=== PATIENT | female | born 1995 | race African-American/Black ===

== ENCOUNTER 2018-08-30 19:29 | Emergency (ER) | payer MEDICAID, OTHER ==
[2018-08-30 20:18] LABS: #Basophils 0.1 thou/uL (0.0-0.2); #Lymphocytes 1.8 thou/uL (1.20-3.40); #Monocytes 0.5 thou/uL (0.11-0.59); #Neutrophils 9.4 thou/uL (1.40-6.50); %Basophils 0.5 % (0.0-1.0); %Eosinophils 0.1 % (0.0-10.0); %Lymphocytes 15.4 % (21.0-51.0); %Monocytes 4.6 % (0.0-10.0); %Neutrophils 79.4 % (42.0-75.0); Hemoglobin 13.6 g/dL (12.0-16.0); Mean Corpuscular HGB CONC 32.4 g/dL (32.0-36.0); Mean Corpuscular Volume 80.1 fL (78.0-98.0); Mean Platelet Volume 7.1 fL (7.4-10.4); Platelet Count 299 thou/uL (130-400); RBC Distribution Width 12.7 % (11.5-14.5); Red Blood Cell (RBC) Count 5.22 mill/uL (4.20-5.40); White Blood Cell (WBC) Count 11.8 thou/uL (4.8-10.8)
[2018-08-30 20:35] LABS: ALT (SGPT) 19 U/L (8-55); AST (SGOT) 19 U/L (5-34); Albumin 4.5 g/dL (3.5-5.0); Alkaline Phosphatase 72 U/L (40-150); Anion Gap 15 mmol/L (10-20); BUN (Urea Nitrogen) 7 mg/dL (7.0-18.7); Bilirubin, Total 0.6 mg/dL (0.2-1.2); Calc. Creatinine Clearance 0 mL/min (70-130); Calcium 9.6 mg/dL (7.8-10.44); Carbon Dioxide 20 mmol/L (22-29); Chloride 106 mmol/L (98-107); Estimated GFR-MDRD Greater than 90; Glucose 85 mg/dL (70-105); Lipase 5 U/L (8-78); Potassium 3.5 mmol/L (3.5-5.1); Protein, Total 7.5 g/dL (6.0-8.3); Sodium 137 mmol/L (136-145)
[2018-08-30] MEDS ORDERED: Fentanyl 100 MCG/2 ML VIAL ONE (21:06)
[2018-08-30 21:18] LABS: Bilirubin Negative (Negative); Blood, Urine Negative (Negative); Clarity Slightly Cloudy (Clear); Glucose, Urine (Dipstick) Negative (Negative); Leukocyte Negative (Negative); Nitrite Negative (Negative); Protein, Urine (Dipstick) Negative (Neg-Trace); Urobilinogen 0.2 mg/dL (0.2-1.0)
== END 2018-08-30 21:41 | disposition home or self-care (01) ==
LOC: SCSER 19:29
DX: O99.284 Endocrine, nutritional and metabolic diseases complicating childbirth (principal); E86.0 Dehydration; O99.351 Diseases of the nervous system complicating pregnancy, first trimester; G43.909 Migraine, unspecified, not intractable, without status migrainosus; Z3A.01 Less than 8 weeks gestation of pregnancy
CPT/HCPCS: 80053; 81003; 83690; 85025; 96361; 96374; J3010

== ENCOUNTER 2019-01-05 10:07 | Emergency (ER) | payer MEDICAID, OTHER ==
[2019-01-05] MEDS ORDERED: Sucralfate 1 GM/10 ML UDCUP ONE (11:02)
[2019-01-05 11:12] LABS: #Basophils 0.1 thou/uL (0.0-0.2); #Lymphocytes 1.5 thou/uL (1.20-3.40); #Monocytes 0.5 thou/uL (0.11-0.59); #Neutrophils 7.9 thou/uL (1.40-6.50); %Basophils 0.5 % (0.0-1.0); %Eosinophils 0.3 % (0.0-10.0); %Lymphocytes 15.4 % (21.0-51.0); %Monocytes 4.9 % (0.0-10.0); Mean Corpuscular HGB CONC 34.3 g/dL (32.0-36.0); Mean Corpuscular Volume 81.7 fL (78.0-98.0); Mean Platelet Volume 8.2 fL (7.4-10.4); Platelet Count 224 thou/uL (130-400); RBC Distribution Width 11.9 % (11.5-14.5); Red Blood Cell (RBC) Count 4.64 mill/uL (4.20-5.40)
--- NOTE | 2019-01-05 11:14 | RAD ---
XR Chest 1 View Portable History: Chest pain Comparison: Radiograph December 30, 2016 Findings: Lungs are clear. No pneumothorax or effusion. Cardiac silhouette and mediastinal contours a re within normal limits. No acute osseous abnormality. Impression: No acute intrathoracic abnormality.
[2019-01-05 11:40] LABS: ALT (SGPT) 11 U/L (8-55); AST (SGOT) 16 U/L (5-34); Albumin 3.9 g/dL (3.5-5.0); Alkaline Phosphatase 97 U/L (40-150); Anion Gap 12 mmol/L (10-20); BUN (Urea Nitrogen) 8 mg/dL (7.0-18.7); Bilirubin, Total 0.3 mg/dL (0.2-1.2); Calc. Creatinine Clearance 0 mL/min (70-130); Calcium 9.7 mg/dL (7.8-10.44); Carbon Dioxide 23 mmol/L (22-29); Chloride 106 mmol/L (98-107); Estimated GFR-MDRD Greater than 90; Globulin 3.5 g/dL (2.4-3.5); Glucose 73 mg/dL (70-105); Lipase 9 U/L (8-78); Potassium 3.9 mmol/L (3.5-5.1); Protein, Total 7.4 g/dL (6.0-8.3); Sodium 137 mmol/L (136-145)
[2019-01-05] MEDS ORDERED: Ondansetron PF 4 MG/2 ML Vial ONE (11:53)
--- NOTE | 2019-01-05 13:50 | CT ---
CTA THORAX WITH CONTRAST: (Computed Tomographic Angiography, chest(noncoronary) with contrast material, and image postprocessin g) (PE protocol) DATE: 01-05-19 TIME: 12:50 p.m. HISTORY: 23-year-old female presents with chest pain and productive cough. TECHNIQUE: IV injection of iodinated contrast: Isovue Scan acquisition timing attempted to coincide with iodinated contrast bolus reaching maximal density in pulmonary arteries. 3D MIP reconstructions. FINDINGS: There is an approximately 2.5 x 1.5 x 1.5 cm noncalcified right proximal inferior hilar lymph node. N o other enlarged hilar or mediastinal lymph nodes. Trachea and major bronchi are patent and clear. No pulmonary thromboembolism. No thoracic aortic dissection, aneurysm or rupture. No pleural effusion, pneumothorax, or pericardial effusion. Lungs are clear. Surgical clips in the gallbladder fossa. IMPRESSION: 1. No pulmonary thromboembolism or any other acute intrathoracic abnormality. 2. Nonspecific enlarged right proximal infrahilar lymph node. 3. Status post cholecystectomy. jn POS: CET
== END 2019-01-05 14:29 | disposition home or self-care (01) ==
LOC: ERS 10:07
DX: O99.89 Other specified diseases and conditions complicating pregnancy, childbirth and the puerperium (principal); R07.89 Other chest pain; O99.352 Diseases of the nervous system complicating pregnancy, second trimester; G43.909 Migraine, unspecified, not intractable, without status migrainosus; Z3A.26 26 weeks gestation of pregnancy
CPT/HCPCS: 71045; 71275; 80053; 83690; 84484; 85025; 85379; 93005; 96361; 96374; J2405

== ENCOUNTER 2019-02-04 21:10 | Emergency (ER) | payer OTHER ==
[2019-02-04 21:35] LABS: Bilirubin Negative (Negative); Blood, Urine Negative (Negative); Clarity Clear (Clear); Glucose, Urine (Dipstick) Negative (Negative); Leukocyte Small (Negative); Nitrite Negative (Negative); Protein, Urine (Dipstick) Negative (Neg-Trace); Urobilinogen 0.2 mg/dL (Less than 2)
[2019-02-04 21:42] LABS: Bacteria/HPF Rare-Few HPF (None Seen); RBC/HPF None Seen HPF (0-3); Squamous Epithelial 0-3 HPF (0-3); WBC/HPF 0-3 HPF (0-3)
== END 2019-02-04 22:38 | disposition home or self-care (01) ==
LOC: SCSER 21:10
DX: O47.03 False labor before 37 completed weeks of gestation, third trimester (principal); O99.353 Diseases of the nervous system complicating pregnancy, third trimester; G43.909 Migraine, unspecified, not intractable, without status migrainosus; Z3A.30 30 weeks gestation of pregnancy
CPT/HCPCS: 81003; 81015; 99284

== ENCOUNTER 2019-03-23 11:25 | Inpatient (IN) | payer OTHER ==
[~2019-03-23 11:25] MED LIST: Bupivacaine 0.25% HCL 30 ML VIAL ONE; Bupivacaine/Epinephrine 0.25% 30 ML VIAL ONE
[2019-03-23] MEDS ORDERED: hydrALAZINE 20 MG/ML VIAL SLOW IVP PRN ×2 (11:38→17:22)
[2019-03-23] MEDS ORDERED: Misoprostol 200 MCG TAB PR PRN (11:38)
[2019-03-23] MEDS ORDERED: Docusate 100 MG CAP PO PRN (11:38)
[2019-03-23] MEDS ORDERED: Diphenoxylate HCl/Atropine Tablet PO PRN ×2 (11:38)
[2019-03-23] MEDS ORDERED: Ibuprofen 800 MG TAB PO PRN (11:38)
[2019-03-23] MEDS ORDERED: Butorphanol Tartrate 1 MG/ML VIAL SLOW IVP PRN (11:38)
[2019-03-23] MEDS ORDERED: Ondansetron PF 4 MG/2 ML Vial IVP PRN (11:38)
[2019-03-23] MEDS ORDERED: NS / Oxytocin 40 units/1000ml 1,000 ML IV PRN (11:38)
[2019-03-23] MEDS ORDERED: Promethazine HCl 25 MG/ML VIAL IM PRN (11:38)
[2019-03-23] MEDS ORDERED: Lidocaine 1% (PF) 30 ML VIAL SC PRN (11:38)
[2019-03-23] MEDS ORDERED: traMADol HCl 50 MG TAB PO PRN (11:42)
[2019-03-23] MEDS ORDERED: Lactated Ringer's 1,000 ML IV SCH (11:45)
[2019-03-23] MEDS ORDERED: NS w/ Oxytocin 10 units 500 ML IV SCH ×2 (11:45)
[2019-03-23] MEDS ORDERED: Penicillin G Potassium 5 MILL.UNITS in Sodium Chloride 0.9% 100 ML IVPB SCH (11:45)
[2019-03-23 12:45] LABS: Mean Corpuscular HGB CONC 34.5 g/dL (32.0-36.0); Mean Corpuscular Hemoglobin 27.4 pg (27.0-31.0); Mean Corpuscular Volume 79.3 fL (78.0-98.0); Platelet Count 251 thou/uL (130-400); RBC Distribution Width 12.2 % (11.5-14.5); Red Blood Cell (RBC) Count 4.39 mill/uL (4.20-5.40)
[2019-03-23] MEDS ORDERED: Lidocaine 1.5%/Epinephrine 1:200,000 5 ML AMPUL IJ ONE (12:55)
[2019-03-23] MEDS ORDERED: Fentanyl 4 mcg/Bup 0.1% Cadd 100 ML ONE (12:56)
[2019-03-23 13:23] LABS: Syphilis Antibody Nonreactive (Nonreactive); Syphilis Antibody Index 0.03 S/CO (<1.00 Non-Reactive)
[2019-03-23 14:37] LABS: HBSAg Index 0.13 S/CO (0-0.99); Hep B Surf Ag NonReactive S/CO (NonReactive)
[2019-03-23 15:30] VITALS: BMI 26.2
[2019-03-23] MEDS ORDERED: Penicillin G 2.5 MILL.units 2.5 MILL.UNITS in Premix Bag 1 BAG IVPB SCH (16:00)
[2019-03-23] MEDS ORDERED: Lanolin Ointment 7 GM TUBE TOP PRN (17:22)
[2019-03-23] MEDS ORDERED: Zolpidem Tartrate 5 MG TAB PO PRN (17:22)
[2019-03-23] MEDS ORDERED: Bisacodyl 10 MG SUPP PR PRN (17:22)
[2019-03-23] MEDS ORDERED: Milk Of Magnesia 30 ML UDCUP PO PRN (17:22)
[2019-03-23] MEDS ORDERED: diphenhydrAMINE 25 MG CAP PO PRN (17:22)
[2019-03-23] MEDS ORDERED: Preparation H Ointment 28 GM TUBE PR PRN (17:22)
[2019-03-23] MEDS ORDERED: Misoprostol 200 MCG TAB VAG PRN (17:22)
[2019-03-23] MEDS ORDERED: Benzocaine-Menthol 82.5 ML CAN TOP PRN (17:22)
[2019-03-23] MEDS ORDERED: NS / Oxytocin 40 units/1000ml 1,000 ML IV SCH (17:30)
[2019-03-23] MEDS: traMADol HCl 50 MG TAB PO PRN (19:54)
[2019-03-23] MEDS: Ondansetron PF 4 MG/2 ML Vial IVP PRN (20:37)
[2019-03-23] MEDS: Docusate Calcium (SURFAK) 240 MG CAP PO SCH (22:08)
[2019-03-23] MEDS: Ibuprofen 800 MG TAB PO SCH (22:08)
[2019-03-24] MEDS: Ondansetron PF 4 MG/2 ML Vial IVP PRN (00:27)
[2019-03-24] MEDS: traMADol HCl 50 MG TAB PO PRN ×3 (04:14→13:02)
[2019-03-24] MEDS: Ibuprofen 800 MG TAB PO SCH ×3 (05:39→21:15)
[2019-03-24] MEDS: Ferrous Sulfate 325 MG TAB PO SCH ×2 (07:41→17:25)
[2019-03-24] MEDS: Prenatal Vitamin 1 TAB PO SCH (08:38)
[2019-03-24] MEDS: Docusate Calcium (SURFAK) 240 MG CAP PO SCH ×2 (08:38→21:16)
[2019-03-24] MEDS ORDERED: FLU VACC QS2019-20(6MOS UP)/PF 60 MCG/0.5 ML SYRINGE IM ONE (09:00)
[2019-03-24] MEDS ORDERED: Adacel (T-DAP) 0.5 ML SYRINGE IM ONE (09:00)
[2019-03-25] MEDS: Ibuprofen 800 MG TAB PO SCH (05:18)
[2019-03-25] MEDS: traMADol HCl 50 MG TAB PO PRN (05:19)
[2019-03-25] MEDS: Prenatal Vitamin 1 TAB PO SCH (08:53)
[2019-03-25] MEDS: Docusate Calcium (SURFAK) 240 MG CAP PO SCH (08:53)
[2019-03-25 09:08] VITALS: BP 94/55; TEMP 97.7
[2019-03-25] MEDS: Ferrous Sulfate 325 MG TAB PO SCH (09:41)
[2019-03-25] MEDS ORDERED: FLU VACC QS2019-20(6MOS UP)/PF 60 MCG/0.5 ML SYRINGE IM ONE (10:46)
== END 2019-03-25 12:55 | disposition home or self-care (01) | DRG 807 ==
LOC: L&D/OP 11:25 → L&D-LIB 13:31 → 3SW 20:58
PROVIDERS: ADMIT Obstetrics & Gynecology; ATTEND Obstetrics & Gynecology
PROC: 10907ZC Drainage of Amniotic Fluid, Therapeutic from Products of Conception, Via Natural or Artificial Opening (ICD-10-PCS; principal; 2019-03-23)
PROC: 10E0XZZ Delivery of Products of Conception, External Approach (ICD-10-PCS; 2019-03-23)
DX: O99.344 Other mental disorders complicating childbirth (principal); Z37.0 Single live birth; F32.9 Major depressive disorder, single episode, unspecified; Z3A.37 37 weeks gestation of pregnancy
CPT/HCPCS: 36415; 85027; 86780; 86850; 86900; 86901; 87340; 90471; 90686; G0008; J2405; J2540; J2590; J3490; S0020

== ENCOUNTER 2019-12-14 12:24 | Emergency (ER) | payer OTHER ==
[2019-12-14] MEDS ORDERED: Fentanyl 100 MCG/2 ML VIAL ONE (12:53)
[2019-12-14] MEDS ORDERED: Lorazepam 2 MG/ML VIAL ONE (12:53)
[2019-12-14] MEDS ORDERED: Ketorolac Tromethamine 30 MG/ML VIAL ONE (12:53)
[2019-12-14] MEDS ORDERED: Ondansetron PF 4 MG/2 ML Vial ONE (12:53)
[2019-12-14 12:57] LABS: #Basophils 0.1 thou/uL (0.0-0.2); #Eosinphils 0.1 thou/uL (0.0-0.7); #Monocytes 0.5 thou/uL (0.11-0.59); #Neutrophils 5.8 thou/uL (1.40-6.50); %Eosinophils 0.8 % (0.0-10.0); %Lymphocytes 23.6 % (21.0-51.0); %Monocytes 5.4 % (0.0-10.0); %Neutrophils 69.2 % (42.0-75.0); Hemoglobin 13.9 g/dL (12.0-16.0); Mean Corpuscular HGB CONC 33.9 g/dL (32.0-36.0); Mean Corpuscular Hemoglobin 27.5 pg (27.0-31.0); Mean Platelet Volume 7.8 fL (7.4-10.4); Platelet Count 299 thou/uL (130-400); RBC Distribution Width 13.6 % (11.5-14.5); Red Blood Cell (RBC) Count 5.06 mill/uL (4.20-5.40); White Blood Cell (WBC) Count 8.4 thou/uL (4.8-10.8)
[2019-12-14 13:08] LABS: BHCG - Serum Negative (NEGATIVE); Pregs Control Background? CLEAR/WHITE (CLR/WHITE); Pregs Control Bar Appear? YES (CONTROL BAR)
--- NOTE | 2019-12-14 13:31 | ULT ---
TRANSABDOMINAL TRANSVAGINAL PELVIC ULTRASOUND DATE:: 12/14/2019 12:41 PM CLINICAL HISTORY: Pelvic pain. COMPARISON: None. TECHNIQUE: Grayscale, color Doppler and spectral Doppler images were obtained of the pelvis see a tra nsabdominal and transvaginal approach FINDINGS: UTERUS: Size: 7.6 x 5.0 x 5.2 cm Mass: None Cervix: Within normal limits Endometrial Thickness: 8.4 mm. OVARIES: Size: Right measures 3.9 x 1.7 cm; Left measures 3.0 x 1.7 cm Mass: None. Flow: Normal CUL-DE-SAC: Minimal free fluid IMPRESSION: No acute sonographic abnormality demonstrated.
[2019-12-16 16:16] LABS: Chlamydia by PCR Not Detected (NotDetected); GC by PCR Not Detected (NotDetected)
== END 2019-12-14 14:39 | disposition home or self-care (01) ==
LOC: ERS 12:24
DX: N80.9 Endometriosis, unspecified (principal); G43.909 Migraine, unspecified, not intractable, without status migrainosus
CPT/HCPCS: 36415; 76856; 83690; 84703; 85025; 87480; 87491; 87510; 87591; 87660; 96374; 96375; J1885; J2060; J2405; J3010